=== PATIENT | male | born 1955 | race African-American/Black ===

== ENCOUNTER 2020-02-11 16:02 | Inpatient (IN) | payer OTHER ==
[~2020-02-11] VITALS: Ht 182.9 cm; Wt 73.5 kg
[2020-02-11] MEDS ORDERED: ACETAMINOPHEN 325MG TABLET PO STA (17:48)
[2020-02-11] MEDS ORDERED: SODIUM CHLORIDE 0.9% 1,000 ML IV ONE (17:51)
[2020-02-11 19:16] LABS: BASOPHILS % 0.4 % (0.0-2.0); HEMATOCRIT. 47.4 % (42.0-52.0); HEMOGLOBIN. 15.4 g/dL (14.0-18.0); LYMPHOCYTES % 12.2 % (20.0-50.0); MEAN CORPUSCULAR HEMOGLOBIN 26.7 pg (28.0-32.0); MONOCYTES % 8.8 % (2.0-8.0); NEUTROPHILS % 78.6 % (40.0-76.0); RED BLOOD CELL COUNT 5.78 mill/uL (4.7-6.1); RED CELL DISTRIBUTION WIDTH 15.4 % (11.6-14.6)
[2020-02-11 19:22] LABS: INR 1.1; PROTHROMBIN TIME 11.8 sec (9.6-11.0)
[2020-02-11] MEDS ORDERED: PIPERACILLIN/TAZ 3.375G PREMIX 50 ML IV ONE (20:00)
[2020-02-11] MEDS ORDERED: VANCOMYCIN 1 G PREMIX 200 ML IV ONE (20:00)
[2020-02-11] MEDS ORDERED: SODIUM CHLORIDE 0.9% 1000ML BAG (SEPSIS BOLUS) IV ONE (20:00)
[2020-02-11 21:16] LABS: CLARITY URINE CLEAR (CLEAR); COLOR URINE DARK YELLOW (YELLOW); KETONES URINE TRACE (NEGATIVE); LEUKOCYTE ESTERASE URINE NEGATIVE (NEGATIVE); NITRITE URINE NEGATIVE (NEGATIVE); OCCULT BLOOD URINE 2+ (NEGATIVE); PROTEIN URINE 3+ (NEGATIVE); SPECIFIC GRAVITY URINE 1.025 (1.005-1.030)
[2020-02-11 21:16] LABS: CHLORIDE 105 mEq/L (98-107)
[2020-02-11 21:36] LABS: MEAN PLATELET VOLUME 8.7 fl (7.4-10.4); PLATELET 261 x1000/uL (130-400); PLATELET ESTIMATE NORMAL
[2020-02-11] MEDS ORDERED: MAGNESIUM/ALUMINUM HYDROXIDE/SIMETHICONE 30ML UDC PO PRN (21:45)
[2020-02-11] MEDS ORDERED: ZOLPIDEM TARTRATE 5MG TABLET PO PRN (21:45)
[2020-02-11] MEDS ORDERED: ACETAMINOPHEN 325MG TABLET PO PRN (21:45)
[2020-02-11] MEDS ORDERED: CLONIDINE 0.1MG TABLET PO PRN (21:45)
[2020-02-11] MEDS ORDERED: GUAIFENESIN 200MG/10ML SUGAR FREE UDC PO PRN (21:45)
[2020-02-11] MEDS ORDERED: DIPHENHYDRAMINE 50MG/ML VIAL IV PRN (21:45)
[2020-02-11] MEDS ORDERED: ONDANSETRON HCL 4MG/2ML INJ IV PRN (21:45)
[2020-02-11] MEDS ORDERED: LOPERAMIDE HCL 2MG CAPSULE PO PRN (21:45)
[2020-02-11] MEDS ORDERED: ACETAMINOPHEN 500MG TABLET PO ONE (22:00)
[2020-02-11] MEDS ORDERED: AZITHROMYCIN 500 MG in DEXT 5% WATER 250 ML IV NR (23:45)
[2020-02-12] MEDS ORDERED: GUAIFENESIN 600MG ER TABLET PO SCH (09:00)
[2020-02-12 20:43] VITALS: BP 134/74
[2020-02-12] MEDS ORDERED: LOPHC5 PO (20:57)
[2020-02-12 21:00] VITALS: BP 119/70
[2020-02-12] MEDS: SODIUM CHLORIDE 0.9% 1,000 ML IV SCH (21:42)
[2020-02-12] MEDS: AMLODIPINE 5MG TABLET PO SCH (21:43)
[2020-02-12] MEDS ORDERED: AZITHROMYCIN 500 MG in DEXT 5% WATER 250 ML IV SCH (21:45)
[2020-02-13] VITALS: BP 103/59
[2020-02-13] MEDS: AZITHROMYCIN 250 MG in DEXT 5% WATER 250 ML IV SCH (00:06)
[2020-02-13] MEDS: ACETAMINOPHEN 325MG TABLET PO PRN (02:52)
[2020-02-13 04:00] VITALS: BP 112/73
[2020-02-13 08:00] VITALS: BP 113/70
[2020-02-13] MEDS: AMLODIPINE 5MG TABLET PO SCH ×2 (08:41→20:52)
[2020-02-13] MEDS: GUAIFENESIN 600MG ER TABLET PO SCH ×2 (08:42→20:53)
[2020-02-13 10:05] LABS: BASOPHILS % 0.5 % (0.0-2.0); EOSINOPHILS % 0.1 % (0.0-5.0); HEMATOCRIT. 41.6 % (42.0-52.0); HEMOGLOBIN. 13.8 g/dL (14.0-18.0); LYMPHOCYTES % 18.7 % (20.0-50.0); MEAN CORPUSCULAR VOLUME 81.6 fL (80.0-94.0); MEAN PLATELET VOLUME 8.2 fl (7.4-10.4); MONOCYTES % 10.8 % (2.0-8.0); NEUTROPHILS % 69.9 % (40.0-76.0); PLATELET 306 x1000/uL (130-400); RED CELL DISTRIBUTION WIDTH 15.5 % (11.6-14.6)
[2020-02-13 10:25] LABS: CHLORIDE 108 mEq/L (98-107)
[2020-02-13 10:31] LABS: PHOSPHORUS 2.5 mg/dL (2.5-4.9)
[2020-02-13 12:51] VITALS: BP 97/61
[2020-02-13] MEDS: SODIUM CHLORIDE 0.9% 1,000 ML IV SCH (13:45)
[2020-02-13] MEDS: THIAMINE HCL 100MG TABLET PO SCH (16:11)
[2020-02-13] MEDS: ENOXAPARIN 40MG/0.4ML SYR SUBCUT SCH (16:11)
[2020-02-13] MEDS: HYDROXYCHLOROQUINE SULFATE 200MG TABLET PO SCH (16:12)
[2020-02-13] MEDS: ASCORBIC ACID 500 MG TABLET PO SCH (16:12)
[2020-02-13] MEDS: ZINC SULFATE 220 MG ( 50 ) CAPSULE PO SCH (16:12)
[2020-02-13 16:30] VITALS: BP 128/82
[2020-02-13 20:00] VITALS: BP 122/79
[2020-02-14] VITALS: BP 120/68
[2020-02-14] MEDS: HYDROXYCHLOROQUINE SULFATE 200MG TABLET PO SCH ×3 (00:10→20:26)
[2020-02-14] MEDS: AZITHROMYCIN 250 MG in DEXT 5% WATER 250 ML IV SCH (00:10)
[2020-02-14 04:00] VITALS: BP 123/81
[2020-02-14 08:00] VITALS: BP 118/78
[2020-02-14] MEDS: ASCORBIC ACID 500 MG TABLET PO SCH ×2 (09:21→16:17)
[2020-02-14] MEDS: THIAMINE HCL 100MG TABLET PO SCH ×2 (09:21→16:17)
[2020-02-14] MEDS: ZINC SULFATE 220 MG ( 50 ) CAPSULE PO SCH (09:21)
[2020-02-14] MEDS: GUAIFENESIN 600MG ER TABLET PO SCH ×2 (09:22→20:27)
[2020-02-14] MEDS: AMLODIPINE 5MG TABLET PO SCH ×2 (09:27→20:13)
[2020-02-14 12:00] VITALS: BP 116/80
[2020-02-14] MEDS ORDERED: BENZONATATE 100MG CAPSULE PO PRN (15:00)
[2020-02-14 16:00] VITALS: BP 108/72
[2020-02-14] MEDS: ENOXAPARIN 40MG/0.4ML SYR SUBCUT SCH (16:18)
[2020-02-14 20:00] VITALS: BP 102/57
[2020-02-14] MEDS: ACETAMINOPHEN 325MG TABLET PO PRN (20:27)
[2020-02-15] VITALS: BP 115/75
[2020-02-15] MEDS: AZITHROMYCIN 250 MG in DEXT 5% WATER 250 ML IV SCH (00:05)
[2020-02-15 04:00] VITALS: BP 120/80
[2020-02-15 08:00] VITALS: BP 123/76
[2020-02-15] MEDS: THIAMINE HCL 100MG TABLET PO SCH ×2 (10:02→15:50)
[2020-02-15] MEDS: ASCORBIC ACID 500 MG TABLET PO SCH ×2 (10:02→15:50)
[2020-02-15] MEDS: ZINC SULFATE 220 MG ( 50 ) CAPSULE PO SCH (10:02)
[2020-02-15] MEDS: HYDROXYCHLOROQUINE SULFATE 200MG TABLET PO SCH (10:02)
[2020-02-15] MEDS: GUAIFENESIN 600MG ER TABLET PO SCH (10:03)
[2020-02-15] MEDS: AMLODIPINE 5MG TABLET PO SCH (10:03)
[2020-02-15 12:00] VITALS: BP 145/77
[2020-02-15] MEDS: ACETAMINOPHEN 325MG TABLET PO PRN (13:32)
[2020-02-15] MEDS: ENOXAPARIN 40MG/0.4ML SYR SUBCUT SCH (15:50)
[2020-02-15 16:37] VITALS: BP 145/77
== END 2020-02-15 17:50 | disposition home or self-care (01) | DRG 720 ==
LOC: ER 16:02 → EDBEDREQ 20:36 → EDBEDREQTM 20:36 → EDBEDREQ 02-12 02:31 → ENRESERV 02-12 19:23 → 7WST 02-12 20:31
PROVIDERS: ADMIT Internal Medicine; ATTEND Internal Medicine
DX: A41.89 Other specified sepsis (principal); U07.1 COVID-19; J96.01 Acute respiratory failure with hypoxia; E87.1 Hypo-osmolality and hyponatremia; I10 Essential (primary) hypertension; R19.7 Diarrhea, unspecified; J12.89 Other viral pneumonia; Z90.5 Acquired absence of kidney; Z90.81 Acquired absence of spleen
CPT/HCPCS: 36415; 71045; 80053; 81003; 82728; 83605; 83735; 83880; 84100; 84145; 85025; 86140; 87635; 87804; 93005; 96365; 99291; J0456; J1650; J2543; J3370; J7030; J7060